=== PATIENT | male | born 1965 | race Caucasian/White ===

== ENCOUNTER 2016-10-13 12:13 | Day surgery (SDC) | payer BC ==
[~2016-10-13] VITALS: Ht 160 cm; Wt 63.7 kg
[2016-10-13 13:33] VITALS: Ht 160 cm; Wt 63.7 kg
[2016-10-13] MEDS ORDERED: BENA5TAB2 PO (13:38)
[2016-10-13 13:50] VITALS: BP 116/76; PULSE 51; RESP 17
[2016-10-13] MEDS ORDERED: PROPOFOL 40 ML ONE (16:22)
[2016-10-13] MEDS ORDERED: PHENYLephrine (100 MCG/ML) 5ML SYG ONE (16:22)
[2016-10-13] MEDS ORDERED: FENTAnyl 50 MCG/ML VIAL ONE (16:22)
[2016-10-13] MEDS ORDERED: LIDOCAINE 2% (SDV) 5 ML INJ ONE (16:22)
[2016-10-13 17:15] VITALS: BP 114/65; RESP 20
--- NOTE | 2016-10-14 04:50 | GILP ---
DATE OF PROCEDURE: 10/13/2016 PROCEDURE: Colonoscopy with polyp ablation. BRIEF HISTORY AND INDICATIONS: The patient is here for colorectal cancer screening. PREMEDICATION: Monitored anesthesia care by anesthesiologist. SURGEON: Krissy Rainey MD INSTRUMENT USED: Olympus colonoscope. PREPARATION: Adequate. TECHNIQUE: After informed consent, with the patient/relatives understanding the procedure, its indic ations potential risks and complications, including but not limited to: allergic reaction, bleeding, perforation, infection, missed lesions and after all pertinent questions were answered to the patie nt's satisfaction, the patient/relatives signed the witnessed informed consent. Following this, premedication was administered slowly IV push by under careful cardiovascular and re spiratory monitoring with pulse oximetry, automatic blood pressure and president celebrity acquistion. Once the sedativ e effect was achieved, the patient was placed in the left lateral decubitus position, digital rectal examination was performed. The colonoscope was then introduced and advanced under visual control th roughout all segments of the colon including: the rectum, sigmoid, descending colon, splenic flexure , transverse colon, hepatic flexure, ascending colon and finally reaching the cecum which was clearl y identified by transillumination, finger indentation and the ileocecal valve. Careful examination o f the mucosa of the lower gastrointestinal tract both on insertion as well as withdrawal of the inst rument disclosed the following findings: Rectal Examination: No evidence of perirectal disease, no masses. Colonic Mucosa: There is a 3 mm polyp in the rectum which was ablated. The remainder of the colonic mucosa is unremarkable. The ileocecal valve was clearly identified and appears unremarkable. The instrument was withdrawn, reexamining the mucosa in detail. No addition al abnormalities were noted with the exception of moderate size internal hemorrhoids. The instrument was then withdrawn, the patient tolerated the procedure well and was transferred out of the [facility] awake and in good condition to continue recovery under observation. IMPRESSION: 1. A 3 mm polyp in the rectum, ablated. 2. Normal colonic mucosa, otherwise. 3. Moderate sized internal hemorrhoids. PLAN: The patient will be followed up as an outpatient. Annual Hemoccult stool testing is recommen ded, and surveillance colonoscopy in 5 years is recommended pending review of pathology. Dictated By: KRISSY RAINEY MS/ANGEL Conf#: [id number] DID#: [id number]
== END 2016-10-13 18:16 | disposition home or self-care (01) ==
LOC: EDSEX 12:13 → GIL 12:13
PROVIDERS: ATTEND Internal Medicine Gastroenterology
DX: Z12.11 Encounter for screening for malignant neoplasm of colon (principal); K62.1 Rectal polyp; I10 Essential (primary) hypertension
CPT/HCPCS: 45380; 88305; J2370; J3010; Z7610